=== PATIENT | female | born 1995 | race Caucasian/White ===

== ENCOUNTER 2017-05-26 16:47 | Inpatient (IN) | payer OTHER ==
[2017-05-26 18:53] LABS: ALANINE AMINOTRANSFERASE 180 IU/L (13-69); ALBUMIN 3.2 g/dl (3.3-4.9); ALBUMIN/GLOBULIN RATIO 0.96; ALKALINE PHOSPHATASE 399 IU/L (42-121); ANION GAP 12 (8-16); ASPARTATE AMINO TRANSFERASE 77 IU/L (15-46); BLOOD UREA NITROGEN 10 mg/dl (7-20); CALCIUM 8.7 mg/dl (8.4-10.2); CARBON DIOXIDE 23 mmol/L (21-31); CHLORIDE 107 mmol/L (97-110); CREATININE 0.54 mg/dl (0.44-1.00); GLUCOSE 98 mg/dl (70-220); POTASSIUM 3.7 mmol/L (3.5-5.1); SODIUM 138 mmol/L (135-144); TOTAL PROTEIN 6.5 g/dl (6.1-8.1)
[2017-05-26] MEDS: LACTATED RINGER'S 1,000 ML IV (19:56)
[2017-05-26] MEDS ORDERED: CARBOPROST 250 MCG INJ IM (20:00)
[2017-05-26] MEDS ORDERED: IBUPROFEN 600 MG TAB PO (20:00)
[2017-05-26] MEDS ORDERED: LIDOCAINE 1% (MPF) 30 ML INJ INJ (20:00)
[2017-05-26] MEDS ORDERED: OXYTOCIN 30 UNITS/LR 500 ML IV (20:00)
[2017-05-26] MEDS ORDERED: METHYLERGONOVINE 0.2 MG INJ IM (20:00)
[2017-05-26] MEDS ORDERED: OXYCODONE/ASPIRIN (4.88/325) TAB PO (20:00)
[2017-05-26] MEDS ORDERED: MISOPROSTOL 200 MCG TAB PR (20:00)
[2017-05-26] MEDS: AMPICILLIN 2 GM/NS (PMX) 100 ML IV (20:02)
[2017-05-26 20:03] LABS: ADD MAN DIFF? NO
[2017-05-26 20:20] LABS: INR 0.83; PROTIME 11.5 Sec (11.9-14.9); PT RATIO 0.9
[2017-05-26 20:28] LABS: BASOPHILS % 0.2 % (0.0-2.0); EOSINOPHILS % 0.3 % (0.0-7.0); HEMOGLOBIN 10.6 g/dl (12.0-16.0); LYMPHOCYTES # 1.5 10^3/ul (0.8-2.9); LYMPHOCYTES % 24.6 % (15.0-51.0); MEAN CORPUSCULAR HEMOGLOBIN 26.4 pg (29.0-33.0); MEAN CORPUSCULAR HGB CONC 33.1 g/dl (32.0-37.0); MEAN CORPUSCULAR VOLUME 79.8 fl (82.0-101.0); MEAN PLATELET VOLUME 11.1 fl (7.4-10.4); MONOCYTE # 0.4 10^3/ul (0.3-0.9); MONOCYTES % 5.6 % (0.0-11.0); NEUTROPHIL # 4.3 10^3/ul (1.6-7.5); NEUTROPHILS % 68.7 % (39.0-77.0); PLATELET COUNT 329 10^3/UL (140-415); RED BLOOD COUNT 4.01 10^6/ul (4.20-5.40); RED CELL DISTRIBUTION WIDTH 13.6 % (11.5-14.5)
[2017-05-26 20:28] LABS: WHITE BLOOD COUNT 6.3 10^3/ul (4.8-10.8)
[2017-05-26 20:54] LABS: HEPATITIS B SURFACE ANTIGEN NEGATIVE (NEGATIVE)
[2017-05-26] MEDS: DINOPROSTONE 10 MG VAG SUPP VAG (21:56)
[2017-05-26] MEDS: AMPICILLIN 1 GM/NS (PMX) 50 ML IV (23:31)
[2017-05-27] MEDS: BUTORPHANOL 2 MG INJ IV ×3 (00:23→06:29)
[2017-05-27] MEDS: AMPICILLIN 1 GM/NS (PMX) 50 ML IV ×5 (03:53→20:02)
[2017-05-27] MEDS: LACTATED RINGER'S 1,000 ML IV ×3 (06:04→19:19)
[2017-05-27] MEDS ORDERED: FENTAnyl 2MCG/ML-ROPIV 0.2% 100 ML (09:31)
[2017-05-27] MEDS ORDERED: ONDANSETRON 4 MG INJ IV (18:00)
[2017-05-27] MEDS ORDERED: NALOXONE (0.4 MG/ML) INJ IV (18:00)
[2017-05-27] MEDS ORDERED: KETOROLAC 30 MG INJ IV (18:00)
[2017-05-27] MEDS ORDERED: HYDROmorphONE 0.5 MG/0.5 ML SYG IV ×2 (18:00)
[2017-05-27] MEDS: FENTAnyl 2MCG/ML-ROPIV 0.2% 100 ML BAG EPI (19:01)
[2017-05-27 21:47] LABS: RAPID PLASMA REAGIN NONREACTIVE (NR)
[2017-05-28] MEDS: AMPICILLIN 1 GM/NS (PMX) 50 ML IV ×4 (00:07→13:17)
[2017-05-28] MEDS: DIPHENHYDRAMINE 50 MG INJ IV (01:14)
[2017-05-28] MEDS: FENTAnyl 2MCG/ML-ROPIV 0.2% 100 ML BAG EPI ×2 (05:10→15:09)
[2017-05-28] MEDS: LACTATED RINGER'S 1,000 ML IV ×2 (05:22→11:45)
[2017-05-28] MEDS: OXYTOCIN 30 UNITS/LR 500 ML IV ×3 (11:55→16:19)
[2017-05-28] MEDS ORDERED: HYDROCODONE/APAP (5/325) TAB PO ×2 (18:30)
[2017-05-28] MEDS ORDERED: ZOLPIDEM 5 MG TAB PO (18:30)
[2017-05-28] MEDS ORDERED: CARBOPROST 250 MCG INJ IM (18:30)
[2017-05-28] MEDS ORDERED: METHYLERGONOVINE 0.2 MG INJ IM (18:30)
[2017-05-28] MEDS ORDERED: OXYTOCIN 30 UNITS/LR 500 ML IV (18:30)
[2017-05-28] MEDS ORDERED: MISOPROSTOL 200 MCG TAB PR (18:30)
[2017-05-28] MEDS: CEPHALEXIN 500 MG CAP PO ×2 (18:56→23:35)
[2017-05-28] MEDS: WITCH HAZEL/GLYCERIN PAD PR (18:56)
[2017-05-28] MEDS: IBUPROFEN 600 MG TAB PO ×2 (18:56→23:36)
[2017-05-28] MEDS: DIBUCAINE 1% 30 GM OINT PR (18:57)
[2017-05-28] MEDS: BENZOCAINE 20% 56 ML SPRAY TOP (18:58)
[2017-05-28] MEDS: LANOLIN 7 GM TUBE TOP (18:59)
[2017-05-28] MEDS: SENNA/DOCUSATE NA (8.6MG/50MG) TAB PO (21:07)
[2017-05-28] MEDS: MAGNESIUM HYDROXIDE 30ML CUP PO (21:07)
[2017-05-28] MEDS: LACTATED RINGER'S 1,000 ML IV* (22:12)
[2017-05-29] MEDS: CEPHALEXIN 500 MG CAP PO ×4 (05:31→23:25)
[2017-05-29] MEDS: IBUPROFEN 600 MG TAB PO ×4 (05:32→23:25)
[2017-05-29] MEDS: MAGNESIUM HYDROXIDE 30ML CUP PO ×2 (08:27→20:23)
[2017-05-29] MEDS: SENNA/DOCUSATE NA (8.6MG/50MG) TAB PO ×2 (08:27→20:23)
[2017-05-29 08:28] LABS: ADD MAN DIFF? NO
[2017-05-29 08:30] LABS: WHITE BLOOD COUNT 6.2 10^3/ul (4.8-10.8)
[2017-05-29 08:31] LABS: BASOPHILS % 0.3 % (0.0-2.0); EOSINOPHILS # 0.1 10^3/ul (0.0-0.5); EOSINOPHILS % 0.8 % (0.0-7.0); HEMATOCRIT 26.3 % (37.0-47.0); HEMOGLOBIN 8.7 g/dl (12.0-16.0); LYMPHOCYTES # 1.8 10^3/ul (0.8-2.9); LYMPHOCYTES % 29.8 % (15.0-51.0); MEAN CORPUSCULAR HEMOGLOBIN 26.5 pg (29.0-33.0); MEAN CORPUSCULAR HGB CONC 33.1 g/dl (32.0-37.0); MEAN CORPUSCULAR VOLUME 80.2 fl (82.0-101.0); MONOCYTE # 0.4 10^3/ul (0.3-0.9); MONOCYTES % 6.3 % (0.0-11.0); NEUTROPHIL # 3.9 10^3/ul (1.6-7.5); NEUTROPHILS % 62.5 % (39.0-77.0); PLATELET COUNT 237 10^3/UL (140-415); RED BLOOD COUNT 3.28 10^6/ul (4.20-5.40); RED CELL DISTRIBUTION WIDTH 13.7 % (11.5-14.5)
[2017-05-29] MEDS: INFLUENZA VIRUS VACCINE 0.5 ML SYG IM* (15:45)
[2017-05-30] MEDS: CEPHALEXIN 500 MG CAP PO ×3 (05:47→17:15)
[2017-05-30] MEDS: IBUPROFEN 600 MG TAB PO ×3 (05:47→17:15)
[2017-05-30] MEDS: MEASLES,MUMPS,RUBELLA VACCINE INJ SC* (07:14)
[2017-05-30] MEDS: VARICELLA VACCINE LIVE/PF 1,350 UNIT/0.5 ML ML SC* (07:14)
[2017-05-30] MEDS: SENNA/DOCUSATE NA (8.6MG/50MG) TAB PO (09:02)
[2017-05-30] MEDS: MAGNESIUM HYDROXIDE 30ML CUP PO (09:02)
[2017-05-30] MEDS: DIPHTH/TET/ACEL PERTUSS (ADULT) 0.5 ML VIAL IM* (10:09)
[2017-05-30] MEDS: LANOLIN 7 GM TUBE TOP (17:19)
[2017-05-30] MEDS: WITCH HAZEL/GLYCERIN PAD PR (17:19)
[2017-05-30] MEDS: BENZOCAINE 20% 56 ML SPRAY TOP (17:19)
== END 2017-05-30 17:45 | disposition home or self-care (01) | DRG 775 ==
LOC: OBT 16:47 → L-D 05-27 07:18 → PP1 05-28 17:51 → L-D 16:49 → OBT 19:23 → L-D 19:23
PROC: 3E0P7VZ Introduction of Hormone into Female Reproductive, Via Natural or Artificial Opening (ICD-10-PCS; 2017-05-26)
PROC: 10E0XZZ Delivery of Products of Conception, External Approach (ICD-10-PCS; principal; 2017-05-28)
PROC: 0HQ9XZZ Repair Perineum Skin, External Approach (ICD-10-PCS; 2017-05-28)
DX: O26.62 Liver and biliary tract disorders in childbirth (principal); K83.1 Obstruction of bile duct; O70.0 First degree perineal laceration during delivery; Z37.0 Single live birth; Z3A.37 37 weeks gestation of pregnancy
CPT/HCPCS: 62319; 76818; 80053; 82962; 83789; 85025; 85610; 85730; 86592; 86850; 86900; 86901; 87340; 90686